=== PATIENT | female | born 1935 | race Caucasian/White ===

== ENCOUNTER 2016-06-29 14:41 | Outpatient (CLI) | payer MEDICARE, BC ==
[~2016-06-29] VITALS: Ht 160 cm; Wt 41.8 kg
[~2016-06-29 14:41] MED LIST: ASPI-558 PO; CALC-699 PO; CELE100C PO; CLON1TAB4 PO; DENO60DI SQ; METO25TA6 PO; SUMA100T7 PO
[2016-06-29 14:54] VITALS: BP 146/85; PULSE 64; RESP 16; TEMP 97.5; O2SAT 100
[2016-06-29 14:57] VITALS: Ht 160 cm; Wt 41.8 kg
[2016-06-29] MEDS ORDERED: DENOSUMAB 60 MG/ML INJECTION SQ ONE (15:00)
== END 2016-06-29 15:09 | disposition home or self-care (01) ==
LOC: INF.THER 14:41
PROVIDERS: ATTEND Internal Medicine
DX: M81.0 Age-related osteoporosis without current pathological fracture (principal)
CPT/HCPCS: 96372; J0897